=== PATIENT | male | born 1940 | race Caucasian/White ===

== ENCOUNTER 2017-03-01 19:23 | Emergency (ER) | payer MEDICARE, BC ==
[2017-03-01 19:47] VITALS: BP 134/72
--- NOTE | 2017-03-01 20:37 | UC ---
Knee Pain HPI - HPI Summary HPI Summary: Patient presents with a past medical history of CA/CHF. He is visiting here from [place]. He states about one month ago her bought a baldomero knee brace and he has been wearing it daily. He states he noticed that his knee is now red, swollen and the skin has changed, some of the skin is dry and peeling. He notes the knee is red, swolllen, warm to touch and slightly painful. - History of Current Complaint Chief Complaint: UCSkin Stated Complaint: KNEE SKIN COMPLAINT Time Seen by Provider: 03/01/17 20:25 Onset/Duration: Gradual Onset, Lasting Days Severity Initially: Mild Severity Currently: Moderate Character: Aching Aggravating Factor(s): Movement Alleviating Factor(s): Rest Associated Signs And Symptoms: Positive: Swelling, Redness Able to Bear Weight: Yes - Risk Factors Septic Arthritis Risk Factor: Extremes of Age Gout Risk Factor: Negative - Allergies/Home Medications Allergies/Adverse Reactions: Allergies Allergy/AdvReac Type Severity Reaction Status Date / Time No Known Allergies Allergy Verified 03/01/17 19:47 Home Medications: Home Medications Fenofibrate 40 mg PO DAILY WITH MEAL 03/01/17 [History Confirmed 03/01/17] PMH/Surg Hx/FS Hx/Imm Hx Previously Healthy: Yes Cardiovascular History: Cardiac Disease, Congestive Heart Failure - Surgical History Surgery Procedure, Year, and Place: EARLY 20s, NUMEROUS SURGERIES RT ARM, [email or web address], [facility] - Family History Known Family History: Positive: Cardiac Disease, Hypertension - Social History Occupation: Retired Lives: Alone Alcohol Use: Occasionally Substance Use Type: None Smoking Status (MU): Former Smoker Amount Used/How Often: 1-2 CIGS A DAY When Did the Patient Quit Smoking/Using Tobacco: 2005 Review of Systems Constitutional: Negative Skin: Negative Eyes: Negative ENT: Negative Respiratory: Negative Cardiovascular: Negative Gastrointestinal: Negative Genitourinary: Negative Motor: Negative Neurovascular: Negative Musculoskeletal: Negative, Other: - right knee swelling. Is Patient Immunocompromised?: No All Other Systems Reviewed And Are Negative: Yes Physical Exam Triage Information Reviewed: Yes Appearance: Well-Appearing Vital Signs: Initial Vital Signs Temp 97.9 F 03/01/17 19:27 Pulse 64 03/01/17 19:27 Resp 18 03/01/17 19:27 BP 134/72 03/01/17 19:27 Pulse Ox 99 03/01/17 19:27 Vital Signs Reviewed: Yes Eye Exam: Normal ENT Exam: Normal Neck exam: Normal Neck: Positive: 1 Respiratory Exam: Normal Cardiovascular Exam: Normal Abdominal Exam: Normal Musculoskeletal Exam: Normal Musculoskeletal: Positive: Edema @ - right knee inspection;dry cracked skin, erythma noted, effusion noted. palpation, warm to touch. rom flexion to 90 degress, extend to 0. negative anterior and posterior draw sign. vasc palpable posteror tiblialis pulses. Neurological Exam: Normal Psychological Exam: Normal Skin Exam: Normal Knee Pain Course/Dx - Course Course Of Treatment: PATIENT TO GO DIRECTLY TO THE ER. - Differential Dx/Diagnosis Differential Diagnosis/HQI/PQRI: Other - SWOLLEN RIGHT KNEE JOINT Provider Diagnoses: SWOLLEN RIGHT KNEE JOINT Discharge - Discharge Plan Condition: Stable Disposition: OTHER Discharge Disposition Comment: patient to do directly to the ER. Patient Education Materials: Swollen Knee Joint (ED) Referrals: Aron Buchanan MD [Primary Care Provider] -
== END 2017-03-01 20:47 ==
LOC: UCEAST 19:23
DX: M25.461 Effusion, right knee (principal); R21 Rash and other nonspecific skin eruption; I50.9 Heart failure, unspecified; Z87.891 Personal history of nicotine dependence
CPT/HCPCS: 99202; G0463

== ENCOUNTER 2017-03-01 21:10 | Emergency (ER) | payer MEDICARE, BC ==
[2017-03-02 01:00] LABS: ABS Basophils 0.1 10^3/ul (0-0.2); ABS Eosinophils 0.5 10^3/ul (0-0.6); ABS Lymphocytes 4.4 10^3/ul (1.0-4.8); ABS Monocytes 0.8 10^3/ul (0-0.8); ABS Neutrophils 4.8 10^3/ul (1.5-7.7); ABS Nucleated RBC 0 10^3/ul; Eosinophil % 4.8 % (0-6); Hematocrit 49 % (42-52); Hemoglobin 16.1 g/dl (14.0-18.0); Lymphocyte % 41.5 % (25-47); Mean Corpuscular HGB Conc 33 g/dl (31-36); Mean Corpuscular Hemoglobin 33 pg (27-31); Mean Corpuscular Volume 99 fL (80-94); Mean Platelet Volume 8 um3 (7.4-10.4); Nucleated Red Blood Cells % 0.2; Platelet Count 288 10^3/ul (150-450); Red Blood Count 4.94 10^6/ul (4.0-5.4); Red Cell Distribution Width 14 % (10.5-15); White Blood Count 10.5 10^3/ul (3.5-10.8)
[2017-03-02] MEDS ORDERED: Clobetasol 0.05% OINT* 30 GM TUBE TOPICAL SCH (01:00)
[2017-03-02 01:12] LABS: EGFR Non-African American 51.4 (>60)
--- NOTE | 2017-03-02 02:10 | ED ---
Nickie Perez Edward, scribed for Alberto Cardona MD on 03/01/17 at 2342 . Lower Extremity - HPI Summary HPI Summary: 76 y/o male presents to the ED c/o scaly, red rash at his L knee starting around 10 days ago. The skin is pruritic but not painful around the L knee. Pt started using Copper Fit support at his L knee and wore it 24/7 for 1 week. The rash started soon after he started wearing Copper Fit. Pt sustained a prior knee injury while shoveling snow, around 8 years ago. PMHx HTN. - History of Current Complaint Chief Complaint: EDExtremityLower Stated Complaint: LT KNEE INJURY Time Seen by Provider: 03/01/17 23:41 Hx Obtained From: Patient Onset/Duration: Still Present Pain Intensity: 0 Timing: Constant Location: Is Discrete @ - L knee Aggravating Factor(s): Nothing Alleviating Factor(s): Nothing - Allergies/Home Medications Allergies/Adverse Reactions: Allergies Allergy/AdvReac Type Severity Reaction Status Date / Time No Known Allergies Allergy Verified 03/01/17 19:47 PMH/Surg Hx/FS Hx/Imm Hx Previously Healthy: No Endocrine/Hematology History: Denies: Hx Diabetes, Hx Thyroid Disease Cardiovascular History: Reports: Hx Congestive Heart Failure - Hx 1989, STATES OK NOW, Hx Hypertension - ON DAILY MEDS Respiratory History: Denies: Hx Asthma, Hx Chronic Obstructive Pulmonary Disease (COPD), Other Respiratory Problems/Disorders GI History: Reports: Hx Gastroesophageal Reflux Disease - Hx OF, 2003, OK WITH MEDS DAILY Denies: Hx Ulcer, Other GI Disorders Musculoskeletal History: Reports: Hx Arthritis - MILD ARTHRITIS Sensory History: Reports: Hx Cataracts - BILATERAL, Hx Contacts or Glasses - CONTACTS, WILL WEAR GLASSES Denies: Hx Hearing Aid Opthamlomology History: Reports: Hx Cataracts - BILATERAL, Hx Contacts or Glasses - CONTACTS, WILL WEAR GLASSES Neurological History: Denies: Other Neuro Impairments/Disorders - Surgical History Surgery Procedure, Year, and Place: EARLY 20s, NUMEROUS SURGERIES RT ARM, [facility]. [facility], [facility] Hx Anesthesia Reactions: No Infectious Disease History: No Infectious Disease History: Denies: Hx Clostridium Difficile, Hx Hepatitis, Hx Human Immunodeficiency Virus (HIV), Hx of Known/Suspected MRSA, Hx Shingles, Hx Tuberculosis, Hx Known/ Suspected VRE, Hx Known/Suspected VRSA, History Other Infectious Disease, Traveled Outside the [place] in Last 30 Days - Family History Known Family History: Positive: Cardiac Disease, Hypertension - Social History Alcohol Use: Occasionally Substance Use Type: Reports: None Smoking Status (MU): Former Smoker Amount Used/How Often: 1-2 CIGS A DAY Review of Systems Constitutional: Negative Eyes: Negative ENT: Negative Cardiovascular: Negative Respiratory: Negative Gastrointestinal: Negative Genitourinary: Negative Musculoskeletal: Negative Skin: Negative Neurological: Negative Psychological: Normal All Other Systems Reviewed And Are Negative: Yes Physical Exam - Summary Physical Exam Summary: VITAL SIGNS: Reviewed. GENERAL: Patient is a well-developed and nourished male who is lying comfortable in the stretcher. Patient is not in any acute respiratory distress. HEAD AND FACE: No signs of trauma. No ecchymosis, hematomas or skull depressions. No sinus tenderness. EYES: PERRLA, EOMI x 2, No injected conjunctiva, no nystagmus. EARS: Hearing grossly intact. Ear canals and tympanic membranes are within normal limits. MOUTH: Oropharynx within normal limits. NECK: Supple, trachea is midline, no adenopathy, no JVD, no carotid bruit, no c- spine tenderness, neck with full ROM. CHEST: Symmetric, no tenderness at palpation LUNGS: Clear to auscultation bilaterally. No wheezing or crackles. CVS: Regular rate and rhythm, S1 and S2 present, no murmurs or gallops appreciated. ABDOMEN: Soft, non-tender. No signs of distention. No rebound no guarding, and no masses palpated. Bowel sounds are normal. EXTREMITIES: FROM in all major joints, no edema, no cyanosis or clubbing. There is no decreased ROM of l knee secondary to pain. The pt is in no pain. NEURO: Alert and oriented x 3. No acute neurological deficits. Speech is normal and follows commands. SKIN: Dry and warm. Skin over L knee scaled with surrounding rash, and mild serous fluid extravasation. Triage Information Reviewed: Yes Vital Signs On Initial Exam: Initial Vitals Temp Pulse Resp BP Pulse Ox 98.1 F 69 18 130/77 95 03/01/17 21:22 03/01/17 21:22 03/01/17 21:22 03/01/17 21:22 03/01/17 21:22 Vital Signs Reviewed: Yes Diagnostics - Vital Signs Vital Signs Temp Pulse Resp BP Pulse Ox 03/01/17 21:22 98.1 F 69 18 130/77 95 - Laboratory Result Diagrams: 03/02/17 00:20 03/02/17 00:20 Lab Statement: Any lab studies that have been ordered have been reviewed, and results considered in the medical decision making process. Re-Evaluation - Re-Evaluation 1 Re-Evaluation Time: 02:00 Comment: Discuss plan of care Lower Extremity Course/Dx - Course Assessment/Plan: 76 y/o male presents to the ED c/o scaly, red rash at his L knee starting around 10 days ago. Pt was given Clobetasol in the ED for the rash. Pt will be d/c home with Clobeetasol and f/u with PCP. - Diagnoses Provider Diagnoses: Contact dermatitis Discharge - Discharge Plan Condition: Stable Disposition: HOME Patient Education Materials: Contact Dermatitis (ED) Referrals: [facility] [facility] REFERRAL [Outside] - 4 Days (PLEASE F/U IN 3-5 DAYS NEEDED) Additional Instructions: RETURN TO THE ED FOR RETURN OR WORSENING OF SYMPTOMS STOP USING COPPER FIT The documentation as recorded by the Nickie otero Edward accurately reflects the service I personally performed and the decisions made by me, Alberto Cardona MD.
[2017-03-02 02:25] VITALS: BP 140/89
== END 2017-03-02 02:22 | disposition home or self-care (01) ==
LOC: ED 21:10
DX: L25.9 Unspecified contact dermatitis, unspecified cause (principal); S89.92XA Unspecified injury of left lower leg, initial encounter; X58.XXXA Exposure to other specified factors, initial encounter; Y93.H1 Activity, digging, shoveling and raking; Y92.9 Unspecified place or not applicable; Z87.891 Personal history of nicotine dependence; Z86.79 Personal history of other diseases of the circulatory system; Z87.19 Personal history of other diseases of the digestive system
CPT/HCPCS: 36415; 80053; 85025; 86140; 99282